=== PATIENT | female | born 1960 | race Caucasian/White ===

== ENCOUNTER → 2018-04-08 | Outpatient (CLI) | payer OTHER ==
[~2018-04-08] MED LIST: DUO-KAPS1 CAP PO; NASONEX SPRAY17 GM NS; VITAMIN D1000 IU PO; ZYRTEC 10MG10 MG PO
== END ==
LOC: MHCPAIN 09:36
DX: G89.29 Other chronic pain (principal); M54.12 Radiculopathy, cervical region; M47.812 Spondylosis without myelopathy or radiculopathy, cervical region; M48.02 Spinal stenosis, cervical region; M96.1 Postlaminectomy syndrome, not elsewhere classified
CPT/HCPCS: G0463

== ENCOUNTER → 2020-05-27 | Outpatient (CLI) | payer OTHER | LOC: COL.RAD 12:35 | DX: M51.36 Other intervertebral disc degeneration, lumbar region (principal); M48.061 Spinal stenosis, lumbar region without neurogenic claudication; M43.26 Fusion of spine, lumbar region; M25.80 Other specified joint disorders, unspecified joint; M50.21 Other cervical disc displacement, high cervical region; M48.02 Spinal stenosis, cervical region; R60.0 Localized edema; Z98.1 Arthrodesis status; R20.2 Paresthesia of skin ==

== ENCOUNTER → 2021-02-02 | Outpatient (CLI) | payer OTHER | LOC: COL.RAD 09:33 | DX: R10.84 Generalized abdominal pain (principal) ==

== ENCOUNTER → 2021-02-21 | Outpatient (CLI) | payer OTHER | LOC: COL.RAD 07:38 | DX: Z01.812 Encounter for preprocedural laboratory examination (principal); N20.0 Calculus of kidney; Z98.84 Bariatric surgery status; Z90.49 Acquired absence of other specified parts of digestive tract; Z96.651 Presence of right artificial knee joint | CPT/HCPCS: Q9967 ==

== ENCOUNTER → 2022-05-08 | Outpatient (CLI) | payer OTHER | LOC: MHCPAIN 09:33 | DX: M47.812 Spondylosis without myelopathy or radiculopathy, cervical region (principal); M54.12 Radiculopathy, cervical region; M96.1 Postlaminectomy syndrome, not elsewhere classified | CPT/HCPCS: G0463 ==